=== PATIENT | male | born 1950 | race African-American/Black ===

== ENCOUNTER 2017-07-21 02:11 | Emergency (ER) | payer SELFPAY ==
[~2017-07-21] VITALS: Ht 188 cm; Wt 86.2 kg
[2017-07-21] MEDS ORDERED: NKM (02:13)
[2017-07-21 02:36] VITALS: BP 129/103
[2017-07-21 03:03] LABS: BASOPHILS % (AUTO) 1.9 % (0.0-2.0); EOSINOPHILS % (AUTO) 0.5 % (0.0-3.0); LYMPHOCYTES % (AUTO) 44.1 % (20.0-45.0); MEAN CORPUSCULAR HEMOGLOBIN 27.2 PG (27.0-31.0); MEAN CORPUSCULAR HGB CONC 32.1 G/DL (32.0-36.0); MEAN CORPUSCULAR VOLUME 85 FL (80-99); MEAN PLATELET VOLUME 6.3 FL (6.5-10.1); MONOCYTES % (AUTO) 16.1 % (1.0-10.0); NEUTROPHILS % (AUTO) 37.4 % (45.0-75.0); PLATELET COUNT 303 K/UL (150-450); RED BLOOD COUNT 4.83 M/UL (4.70-6.10); RED CELL DISTRIBUTION WIDTH 17.6 % (11.6-14.8)
[2017-07-21 03:15] LABS: ALANINE AMINOTRANSFERASE 541 U/L (3-41); ALBUMIN/GLOBULIN RATIO 0.9 (1.0-2.7); ANION GAP 16 (5-15); ASPARTATE AMINO TRANSFERASE 721 U/L (5-40); CARBON DIOXIDE 22 mEQ/L (20-30); CHLORIDE 101 mEQ/L (98-107); CREATININE 0.8 mg/dL (0.7-1.2); GLOMERULAR FILTRATION RATE > 60 mL/min (>60); HEMOLYSIS 15; POTASSIUM 4.4 mEQ/L (3.4-4.9); SODIUM 139 mEQ/L (135-145); TOTAL PROTEIN 8.3 g/dL (6.6-8.7)
[2017-07-21 03:35] LABS: BILIRUBIN,DIRECT 0.8 mg/dL (0.1-0.3)
[2017-07-21] MEDS ORDERED: Thiamine HCl 100 MG in D5W 55 ML IVPB ONE (04:45)
[2017-07-21] MEDS ORDERED: Thiamine HCl 100mg/ml 2 ml Inj ONE (04:47)
[2017-07-21 05:00] VITALS: BP 112/88
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
[2017-07-21 05:47] LABS: INR 1.7 (0.9-1.1)
[2017-07-21 06:45] VITALS: BP 114/85
[2017-07-21 07:10] VITALS: BP 114/85
--- NOTE | 2017-07-21 09:32 | Diagnostic Imaging Report ---
Indications: Pain Technique: Spiral acquisitions obtained through the brain. Angled axial and coronal 5 x 5 mm slices were reconstructed. Total dose length product 1411 mGycm. CTDI vol(s) 70 mGy. Dose reduction achieved using automated exposure control Comparison: None Findings: There is age-related enlargement of the ventricles and extra axial CSF spaces. The calvarium is intact. There is periventricular deep white matter ischemic change, minimal. No acute hemorrhage or edema. No mass effect or midline shift. Normal mendes-white differentiation. Visualized orbits and sinuses are unremarkable. Impression: Age-related changes, as described Negative for acute intracranial bleed or mass effect This agrees with the preliminary interpretation provided overnight by [facility]. The CT scanner at [facility] is accredited by the [employer] and the scans are performed using protocols designed to limit radiation exposure to as low as reasonably achievable to attain images of sufficient resolution adequate for diagnostic evaluation.
== END 2017-07-21 07:10 | disposition home or self-care (01) ==
LOC: EDBD 02:11 → EMR 02:45
DX: F10.129 Alcohol abuse with intoxication, unspecified (principal); I10 Essential (primary) hypertension
CPT/HCPCS: 36415; 70450; 80053; 82248; 82550; 83690; 85025; 85610; 85730; 96361; 96365; 96366; 99284; G0480; 80329